=== PATIENT | female | born 1980 | race Caucasian/White ===

== ENCOUNTER → 2018-09-04 | Day surgery (SDC) | payer BC, OTHER ==
[2018-09-01 13:34] LABS: BASOPHILS % 0.4 % (0.0-1.0); EOSINOPHILS # (AUTO) 0.1 (0.0-0.4); EOSINOPHILS % 1.2 % (0.0-6.0); HEMATOCRIT 35.2 % (34.2-44.1); HEMOGLOBIN 11.5 g/dL (12.0-16.0); LYMPHOCYTES # (AUTO) 2.6 (1.0-3.2); LYMPHOCYTES % 26.6 % (18.0-39.1); MEAN CORPUSCULAR HEMOGLOBIN 28.2 pg (28-32); MEAN CORPUSCULAR HGB CONC 32.7 g/dL (31-35); MEAN CORPUSCULAR VOLUME 86.3 fL (81-99); MONOCYTES # (AUTO) 0.5 (0.2-0.8); MONOCYTES % 4.7 % (4.4-11.3); NEUTROPHILS # (AUTO) 6.5 (2.1-6.9); NEUTROPHILS % 66.8 % (38.7-80.0); PLATELET COUNT 293 x10e3/uL (140-360); RED BLOOD COUNT 4.08 x10e6/uL (3.6-5.1); RED CELL DISTRIBUTION WIDTH 13.8 % (11.7-14.4)
--- NOTE | 2018-09-01 13:43 | Diagnostic Imaging Report ---
EXAMINATION: PA and lateral views of the chest. COMPARISON: None CLINICAL HISTORY: Preoperative study for uterine ablation DISCUSSION: Lines/tubes: None. Lungs: The lungs are well inflated and clear. There is no evidence of pneumonia or pulmonary edema. Pleura: There is no pleural effusion or pneumothorax. Heart and mediastinum: The cardiomediastinal silhouette is normal. Bones and soft tissues: No acute bony abnormalities. No acute osseous abnormality. IMPRESSION: No acute cardiopulmonary abnormalities. Signed by: Dr. Star Quintana M.D. on 09/01/2018 1:40 PM
[2018-09-01 13:46] LABS: ANION GAP 12.3 mmol/L (8-16); BLOOD UREA NITROGEN 12 mg/dL (7-26); BUN/CREATININE RATIO 17 (6-25); CALCIUM 9.5 mg/dL (8.4-10.2); CARBON DIOXIDE 23 mmol/L (22-29); CHLORIDE 101 mmol/L (98-107); CREATININE, SERUM 0.71 mg/dL (0.57-1.11); EST GLOMERULAR FILTRATION RATE > 60 ML/MIN (60-); GLUCOSE 87 mg/dL (74-118); POTASSIUM 3.3 mmol/L (3.5-5.1); SODIUM 133 mmol/L (136-145)
[~2018-09-04] MED LIST: ACETAMINOPHEN 1000 MG/100 ML 100 ML IV ONE; DEXAMETHASONE SOD PHOS INJ 4 MG/ML VIAL ONE; FENTANYL CITRATE/PF 100MCG/2 ML INJ ONE; HYDROMORPHONE 2MG/ML 2 MG/ML ML ONE; KETOROLAC TROMETHAMINE 30 MG/ML VIAL ONE; LEXAPRO10 MG PO; LIDOCAINE HCL 2% LOCAL INJ 5 ML SDV VIAL INJ ONE; LISINOPRIL-HCT1 EACH PO; MIDAZOLAM HCL 2 MG/2 ML VIAL ONE; ONDANSETRON HCL INJ 2MG/ML 2ML 2 MG/ML VIAL ONE; PROPOFOL IV EMULSION 10 MG/ML 20 ML VIAL ONE; SEVOFLURANE INHAL SOLN 250 ML PEN BTL ONE; SILVER NITRATE SWABS ONE; VITAMIN D400 UNIT PO
--- OUTSIDE RECORDS SUMMARY | 2018-09-04 10:04 | XMS REPORT ---
[facility] Address Unknown Phone Unavailable Care Team Providers Care Tools Administrator Name Role Phone STAR NIELSEN Unavailable Unavailable Problems This patient has no known problems. Allergies, Adverse Reactions, Alerts This patient has no known allergies or adverse reactions. Medications This patient has no known medications. Results Test Description Test Time Test Comments Text Results Atomic Results Result Comments CHEST 2 VIEWS 2018-09-01 13:38:00 [place] [address] Patient Name: JOSELITO GARCIAS MR #: [id number] : 1980 Age/Sex: 37/F Req #: [id number] Adm Physician: Ordered by: STAR NIELSEN MD Report #: [id number] Location: OR Room/Bed: Procedure: [id number] DX/CHEST 2 VIEWS Exam Date: 09/01/18 Exam Time: 1327 REPORT STATUS: Signed EXAMINATION: PA and lateral views of the chest. C OMPARISON: None CLINICAL HISTORY: Preoperative study for uterine ablation DISCUSSION: Lines/tubes: None. Lungs: The lungs are well inflated and clear. There is no evidence of pneumonia or pulmonary edema. Pleura: There is no pleural effusion or pneumothorax. Heart and mediastinum: The cardiomediastinal silhouette is normal. Bones and soft tissues: No acute bony abnormalities. No acute osseous abnormality. IMPRESSION: No acute cardiopulmonary abnormalities. Signed by: Dr. Star Delatorre M.D. on 09/01/2018 1:40 PM Dictated By: STAR DELATORRE MD 37 Transcribed By: RAMAKRISHNA on 09/01/181339 COPY TO: STAR NIELSEN MD
[2018-09-04 15:00] VITALS: BP 125/80
--- NOTE | 2018-09-04 19:46 | Operative Report ---
DATE OF PROCEDURE: 09/04/2018 SURGEON: Star Mtz MD PREOPERATIVE DIAGNOSES: Abnormal uterine bleeding, dysmenorrhea. POSTOPERATIVE DIAGNOSES: Abnormal uterine bleeding, dysmenorrhea, arcuate uterus. TITLE OF OPERATION: Hysteroscopy with hydrothermablation. ANESTHESIA: General with Dr. Lobo and Bowen, mechanic's assistant. INDICATIONS FOR OPERATION: The patient is a 37-year-old 3, para 2-0-1-2, last menstrual period August 19, 2018, status post bilateral salpingectomy for contraception, who presents with heavy menses 2-3 days and lasting 7 to 16 days, hemoglobin decreased to 11. She was offered options of a hysterectomy, oral contraceptives, endometrial ablation, and she has chosen due to her smoking status not to take oral contraceptives. She has therefore decided to undergo endometrial ablation. The risks and benefits were explained to her in detail and she has chosen this and declined the alternatives. She is therefore taken to the operating room at this time. FINDINGS AT SURGERY: There was a large cavity, which sounded to 10 cm. There was an arcuate uterus. Both ostia were utilized and good ablation was obtained. The endometrial tissue was not thickened. DESCRIPTION OF PROCEDURE: The patient was taken to the operating room and placed on the table in the supine position. General anesthesia was administered. The patient was then placed in the lithotomy position. The perineum was prepared and draped in the usual sterile manner. The bladder was drained by in and out catheterization. Pelvic exam revealed an 8-week sized anteverted uterus with no adnexal masses. A weighted speculum was placed in the posterior vaginal wall and with the aid of right angle retractor, the anterior lip of the cervix was grasped with single-tooth tenaculum, then with H[place] dilators the endocervical canal was dilated up to #22. Then, a hysteroscope was placed and the endometrial cavity was visualized. It was a large cavity with arcuate uterus appearance. Both ostia were easily visualized. The uterus had been sounded prior to this to 10 cm. Then once we were sure that there was a good seal and the endometrium looked normal, we proceeded with the ablation. The HTA ablator heated the water up to 80 degrees celsius after which the ablation started. Ten minutes of ablation was done at a temperature of 80-90 degree celsius. A good ablation was obtained with blanching of the pink tissue to white. After the 10 minutes, it was apparent that a good ablation was obtained and the procedure was deemed terminated. We inspected both ostia, entire cavity and it was apparent that a good ablation was obtained and thus the procedure was deemed terminated. All the instruments and fluid were removed from the vagina. There was a small amount of bleeding from the tenaculum site which was cauterized using silver nitrate sticks with good hemostasis after. There were no complications noted. Estimated blood loss was 5 mL. The patient tolerated the procedure well and was transferred from the operating room to the recovery room in stable condition after she was awoken from the general anesthesia. The counts were correct after the procedure as well. MD BLAKE Schofield/MODL /[id number]
== END | disposition home or self-care (01) ==
LOC: OR 10:01
PROVIDERS: ATTEND Obstetrics & Gynecology
DX: N93.9 Abnormal uterine and vaginal bleeding, unspecified (principal); Q51.810 Arcuate uterus; N94.6 Dysmenorrhea, unspecified; Z01.812 Encounter for preprocedural laboratory examination; F41.9 Anxiety disorder, unspecified; F32.9 Major depressive disorder, single episode, unspecified; E66.01 Morbid (severe) obesity due to excess calories; I10 Essential (primary) hypertension
CPT/HCPCS: 36415; 58563; 71046; 80048; 84702; 85025; 93005; J0131; J1100; J1170; J1885; J2001; J2250; J2405; J2704

== ENCOUNTER 2018-12-16 17:00 | Outpatient (RCR) | payer BC, OTHER ==
[~2018-12-16 17:00] MED LIST changes: -ACETAMINOPHEN 1000 MG/100 ML 100 ML IV ONE; -DEXAMETHASONE SOD PHOS INJ 4 MG/ML VIAL ONE; -FENTANYL CITRATE/PF 100MCG/2 ML INJ ONE; -HYDROMORPHONE 2MG/ML 2 MG/ML ML ONE; -KETOROLAC TROMETHAMINE 30 MG/ML VIAL ONE; -LIDOCAINE HCL 2% LOCAL INJ 5 ML SDV VIAL INJ ONE; -MIDAZOLAM HCL 2 MG/2 ML VIAL ONE; -ONDANSETRON HCL INJ 2MG/ML 2ML 2 MG/ML VIAL ONE; -PROPOFOL IV EMULSION 10 MG/ML 20 ML VIAL ONE; -SEVOFLURANE INHAL SOLN 250 ML PEN BTL ONE; -SILVER NITRATE SWABS ONE
== END 2018-12-19 ==
LOC: PT 17:00
PROVIDERS: ATTEND Neurological Surgery
DX: M47.896 Other spondylosis, lumbar region (principal)

== ENCOUNTER 2019-01-13 17:12 | Outpatient (RCR) | payer BC, OTHER | END 2019-01-18 | LOC: PT 17:12 | PROVIDERS: ATTEND Neurological Surgery | DX: M47.896 Other spondylosis, lumbar region (principal) | CPT/HCPCS: 97139 ==